=== PATIENT | female | born 1980 | race Caucasian/White ===

== ENCOUNTER 2024-12-02 00:55 | Emergency (ER) | payer SELFPAY ==
--- NOTE | ~2024-12-02 | XR_ITS ---
Portable chest x-ray Comparison: None Clinical History: Altered mental status Findings: There is minimal patchy bibasilar haziness. Cardiomediastinal silhouette is unremarkable. Bones and soft tissues are unremarkable. Impression: Minimal patchy bibasilar airspace disease. Correlate for atypical infection or possibly minimal pulmo nary edema. Reviewed, dictated and finalized at [facility]. Impression: Minimal patchy bibasilar airspace disease. Correlate for atypical infection or possibly minimal pulmonary edema.
--- NOTE | ~2024-12-02 | CT_ITS ---
Non-contrast Head CT History: Altered mental status Technique: Axial non-contrast imaging of the brain was performed. Dose reduction technique was used on this scan by utilizing automated exposure control and iterative reconstruction technique. The dose -length product (DLP) was 681.00 mGy-cm. Findings: There is no evidence of intracranial hemorrhage, mass lesion, or acute infarct. Brain par enchyma appears normal. The ventricles and subarachnoid spaces are normal in size. The calvarium ap pears normal. The visualized paranasal sinuses and mastoid air cells are clear. Impression: No significant abnormality seen. Reviewed, dictated and finalized at location . Impression: No significant abnormality seen.
[2024-12-02 00:58] VITALS: BP 133/81; PULSE 102; RESP 22; O2SAT 95
--- NOTE | 2024-12-02 00:58 | ECG_ITS ---
Test Date: 2024-12-02 01:49:56 Measurements Intervals Eleanor Rate: 107 P: 60 OH: 139 QRS: 59 QRSD: 79 T: 39 QT: 338 QTc: 451 Interpretive Statements SINUS TACHYCARDIA POSSIBLE LEFT ATRIAL ENLARGEMENT [-0.1mV P WAVE IN V1/V2] BORDERLINE ECG No previous ECG available for comparison Electronically Signed On 12-02-2024 07:25:31 CDT by Edward Bucio M.D.
[2024-12-02 01:00] VITALS: O2SAT 99
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
[2024-12-02 01:03] LABS: Glucose Point of Care 104 mg/dl (65-105)
[2024-12-02] MEDS: HALOPERIDOL LACTATE 5 MG/ML VIAL IM ×2 (01:07→01:15)
--- OUTSIDE RECORDS SUMMARY | 2024-12-02 01:22 | XMS_ITS | Clinical Summary ---
Author Organization [facility] Address [address] [place] [address] Phone Care Team Providers Care Food Service Agent Name Role Phone Unavailable Primary Care Provider Unavailabl e Allergies No known active allergies Medications hydrOXYzine HCl (ATARAX) 25 mg tablet Take 1 Tablet (25 mg) by mouth 3 times daily as needed for Itching. 20 Tablet 07/28/20 18 Active famotidine (PEPCID) 20 mg tablet Take 1 Tablet (20 mg) by mouth 2 times daily. 30 Tablet None 07/28/20 18 Active EPINEPHrine (EPIPEN) 0.3 mg/0.3 mL Auto-Injector Inject 0.3 mL (0.3 mg) by intramuscular injection 1 time daily as needed for Anaphylaxis. 1 Package 07/28/20 18 Active predniSONE (DELTASONE) 50 mg tablet Take 1 Tablet (50 mg) by mouth daily. 5 Tablet 07/06/20 23 Active cyclobenzaprine (FLEXERIL) 10 mg tablet Take 1 Tablet (10 mg) by mouth 3 times daily as needed for Spasm. 30 Tablet 07/06/20 23 Active ketorolac tromethamine (TORADOL) 10 mg tablet Take 1 Tablet (10 mg) by mouth every 6 hours as needed for Pain. 12 Tablet 07/06/20 23 Active acetaminophen (TYLENOL) 500 mg tablet Take 2 Tablets (1,000 mg) by mouth every 6 hours as needed for Pain. 30 Tablet 07/06/20 23 Active Social History Tobacco Use Types Packs/Day Years Used Date Smoking Tobacco: Every Day Cigarettes Smokeless Tobacco: Never Alcohol Use Standard Drinks/Week Comments Yes 0 (1 standard drink = 0.6 oz pur e alcohol) Feeling Safe Answer Date Recorded Are you in a relationship wi th someone who hurts you emotionally and/or physically? No 07/06/2023 Comments Unknown Sex and Gender Information Value Date Recorded Sex Assigned at Not on file Legal Sex Female 11:54 PM CDT Gender Identity Not on file Sexual Orientation Not on file Last Filed Vital Signs Vital Sign Reading Time Taken Comments Blood Pressure 99/63 07/06/2023 7:48 PM GUN CLUB MANAGER Pulse 88 07/06/2023 4:05 PM GUN CLUB MANAGER Temperature 36.7 C (98 F) 07/06/2023 7:48 PM GUN CLUB MANAGER Respiratory Rate 18 07/06/2023 7:48 PM GUN CLUB MANAGER Oxygen Saturation 93% 07/06/2023 7:48 PM GUN CLUB MANAGER Inhaled Oxygen Concentration - - Weight 61.2 kg (135 lb) 07/06/2023 2:58 PM GUN CLUB MANAGER Height 165.1 cm (5' 5 ) 07/06/2023 2:58 PM GUN CLUB MANAGER Body Mass Index 22.47 07/06/2023 2:58 PM GUN CLUB MANAGER Plan of Treatment Health Maintenance Due Date Last Done Comments DTAP/TDAP/TD VACCINES (1 - Tdap) 2001 HEPATITIS B VACCINES (1 of 3 - 19+ 3-dose series) 2001 HPV/Cotest (21-29) 12/04/2003 CERVICAL CANCER SCREENING 2012 HPV/Cotest (30-65) 2012 PAP SMEAR 2012 BREAST CANCER SCREENING 2022 INFLUENZA VACCINE (#1) 2024 HPV VACCINES Aged Out No longer eligi ble based on patient's age to complete this topic Insurance [facility]
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
[2024-12-02] MEDS: Please add drug allergy info to patient profile. 1 EACH XX (01:52)
[2024-12-02 01:55] LABS: Basophils Percent Auto 0.5 % (0.2-1.2); Eosinophils Absolute Auto 0.2 K/mm3 (0-0.3); Eosinophils Percent Auto 2.1 % (0-4.4); Hematocrit 42.9 % (37.0-47.0); Hemoglobin 13.8 g/dL (12.0-15.0); Immature Granulocyte Absolute 0.02 K/mm3 (0.00-0.031); Immature Granulocyte Percent A 0.2 % (0-0.5); Lymphocytes Absolute Auto 3.48 K/mm3 (0.9-3.2); Mean Corpuscular HGB Conc 32.2 g/dl (32-36); Mean Corpuscular Hemoglobin 31.4 pg (26-34); Mean Corpuscular Volume 97.5 fl (80-100); Mean Platelet Volume 10.2 fl (7.4-10.4); Monocytes Absolute Auto 0.5 K/mm3 (0.1-0.6); Monocytes Percent Auto 5.4 % (2.6-8.5); Neutrophils Absolute Auto 4.1 K/mm3 (1.3-6.7); Neutrophils Percent Auto 49.8 % (45.5-73.1); Platelet Count Result 300 k/mm3 (150-375); White Blood Count 8.3 K/mm3 (4.5-10.0)
[2024-12-02 02:07] LABS: INR 0.9; Partial Thromboplastin Time 26.7 Seconds (22.3-36.8); Prothrombin Time 12.5 Seconds (11.1-14.7)
[2024-12-02 02:16] LABS: Alanine Aminotransferase 29 U/L (6-35); Albumin Level 4.5 g/dL (3.5-5.1); Alkaline Phosphatase 53 U/L (38-126); Anion Gap 14 mmol/L (4-12); Aspartate Amino Transferase 33 U/L (14-36); Bilirubin,Total 0.2 mg/dL (0.2-1.3); Blood Urea Nitrogen 19 mg/dL (7-17); Calcium 8.8 mg/dL (8.4-10.2); Carbon Dioxide 20 mmol/L (22-30); Chloride 107 mmol/L (98-107); Estimated CRCL calculation 88 ml/min; Estimated Glomerular Filt Rate > 60; Glucose 96 mg/dL (65-110); Potassium 3.5 mmol/L (3.4-5.0); Sodium 141 mmol/L (137-145)
[2024-12-02 02:17] LABS: BEDSIDEPREGUCG Negative (Negative)
[2024-12-02 02:24] LABS: Acetaminophen < 10 ug/mL (10-30); Salicylate < 1.0 mg/dL (2-20)
[2024-12-02 02:27] LABS: Add Urine Microscopic? YES; Appearance Urine Turbid (Clear); Bacteria Urine None Seen /hpf; Bilirubin Urine Negative (Negative); Blood Urine 2+ (Negative); Color Urine Yellow (Yellow); Glucose Urine UA Negative (Negative); Ketones Urine Negative (Negative); Leukocyte Esterase Ur Trace LEU/UL (Negative); Nitrate Urine Negative (Negative); Non Pathogenic Casts 0-2; Protein Urine Negative (Negative); RBC Urine 0-2 /hpf (0-2); Specific Grav Ur 1.002 (1.001-1.035); Squamous Epithelial Cell Urine Occasional /hpf (Few); Urobilinogen Urine 0.2 mg/dL (<2.0); WBC Urine 0-5 /hpf (0-3)
[2024-12-02 02:32] LABS: Amphetamine Screen Urine Negative (Negative); Barbiturate Screen Urine Negative (Negative); Benzodiazepines Screen Urine Negative (Negative); Cannabinoid Screen Urine Negative (Negative); Cocaine Screen Urine Negative (Negative); Methadone Screen Urine Negative (Negative); Opiate Screen Urine Negative (Negative); Phencyclidine Screen Urine Negative (Negative)
[2024-12-02 02:38] LABS: Ethanol 316 mg/dL (<10)
--- NOTE | 2024-12-02 02:42 | PC.NURSE ---
Pt taken to CT on stretcher accompanied by this RN and senior qc technician.
--- NOTE | 2024-12-02 03:00 | PC.NURSE ---
Pt family updated on plan of care, and at bedside.
[2024-12-02 04:30] VITALS: BP 98/58; PULSE 111; RESP 20; O2SAT 97
[2024-12-02 05:00] VITALS: BP 108/65
[2024-12-02 05:15] VITALS: BP 113/75; O2SAT 96
== END 2024-12-02 05:20 | disposition home or self-care (01) ==
PROVIDERS: Physician Assistant; Emergency Provider Emergency Medicine
DX: F10.120 Alcohol abuse with intoxication, uncomplicated (principal); Y90.8 Blood alcohol level of 240 mg/100 ml or more; R94.31 Abnormal electrocardiogram [ECG] [EKG]; R00.0 Tachycardia, unspecified
CPT/HCPCS: 36415; 70450; 71045; 80053; 80143; 80179; 80307; 81001; 81025; 82077; 82948; 84443; 85025; 85610; 85730; 93005; 96372; 96374; 99284; J1630